=== PATIENT | male | born 1960 | race Hispanic/Latino ===

== ENCOUNTER → 2023-06-17 | Outpatient (CLI) | payer OTHER ==
[~2023-06-17] MED LIST: ASPI-1443 PO; FENO145T PO; INUL1TAB4 PO; LEVO25TA9 PO; MAGN400T40 PO; METO-408 PO; MULT-1289 PO; ROSU5TAB PO; Tumeric PO; UBID50CA23 PO; VITAD400 PO; [UNRECOGNIZED DRUG - OTHER] PO
== END | disposition home or self-care (01) ==
LOC: OIH 07:50
PROVIDERS: ATTEND Internal Medicine Cardiovascular Disease
DX: Z13.6 Encounter for screening for cardiovascular disorders (principal); E78.5 Hyperlipidemia, unspecified
CPT/HCPCS: 75571

== ENCOUNTER → 2023-06-21 | Outpatient (CLI) | payer BC, OTHER, SELFPAY ==
[~2023-06-21] MED LIST changes: +IOHEXOL 350 MG/ML 100ML INFUS..BTL IV ONE
== END | disposition home or self-care (01) ==
LOC: RAH 09:08
PROVIDERS: ATTEND Internal Medicine Cardiovascular Disease
DX: R07.9 Chest pain, unspecified (principal); M47.815 Spondylosis without myelopathy or radiculopathy, thoracolumbar region
CPT/HCPCS: 75574; Q9967

== ENCOUNTER → 2023-07-23 | Outpatient (CLI) | payer BC ==
[~2023-07-23] MED LIST changes: -IOHEXOL 350 MG/ML 100ML INFUS..BTL IV ONE
== END | disposition home or self-care (01) ==
LOC: SHCH 07:53
PROVIDERS: ATTEND Internal Medicine Cardiovascular Disease
DX: I35.0 Nonrheumatic aortic (valve) stenosis (principal); R01.1 Cardiac murmur, unspecified; I51.7 Cardiomegaly; I51.89 Other ill-defined heart diseases
CPT/HCPCS: 93306